=== PATIENT | female | born 1990 | race Caucasian/White ===

== ENCOUNTER 2016-08-23 04:06 | Emergency (ER) | payer OTHER ==
[~2016-08-23] VITALS: Ht 157.5 cm; Wt 80.0 kg
[2016-08-23 04:08] VITALS: Ht 157.5 cm; Wt 80.0 kg
--- NOTE | 2016-08-23 04:48 | ERD ---
ER Documentation Chief Complaint Date/Time DATE: 08/23/16 TIME: 04:46 Chief Complaint anxiety HPI 26-year-old female presents with a history of palpitations, chest pain, racing thoughts for the past 2 weeks, worsened tonight. She states that she went out with her boyfriend, and for no reason she felt worse tonight. She states that she has had this in the past however has not needed any medication. She denies any thoughts of hurting herself or hurting others. ROS All systems reviewed and are negative except as per history of present illness. Medications Home Meds Active Scripts Lorazepam* (Ativan*) 0.5 Mg Tablet, 0.5 MG PO Q8, #10 TAB Prov:JEANNIE TOWNSEND PA-C 08/23/16 Allergies Allergies: Coded Allergies: No Known Allergy (Unverified , 08/23/16) PMhx/Soc Medical and Surgical Hx: pt denies Medical Hx, pt denies Surgical Hx History of Surgery: No Anesthesia Reaction: No Hx Neurological Disorder: No Hx Respiratory Disorders: No Hx Cardiac Disorders: No Hx Psychiatric Problems: No Hx Miscellaneous Medical Probl: No (DENIES MED AND SURG HX.) Hx Alcohol Use: No Hx Substance Use: No Hx Tobacco Use: No Smoking Status: Never smoker Physical Exam Vitals Vital Signs Date Time Temp Pulse Resp B/P Pulse Ox O2 Delivery O2 Flow Rate FiO2 08/23/16 04:08 97.4 99 20 131/73 98 Physical Exam General: Patient appears to be moderately anxious. HEENT: Head is normocephalic, atraumatic. No scleral icterus. Neck: Supple. Nontender. Lungs: Clear to auscultation. Normal air movement. Heart: Tachycardic, normal rhythm Abdomen: Soft, nontender, nondistended. Bowel sounds are normoactive. Extremities: No clubbing or cyanosis. Normal pulses. Moving extremities x 4. No weakness. Neurologic: Alert and oriented 3. No focal deficits. Skin: Normal turgor. No rash or lesions. Results 24 hrs Laboratory Tests Test 08/23/16 04:44 Bedside Glucose 144mg/dL Current Medications Medications (Trade) Dose Ordered Sig/Daphney Route PRN Reason Start Time Stop Time Status Last Admin Dose Admin Lorazepam (Ativan) 0.5 mg ONCE ONCE PO 08/23/16 05:00 08/23/16 05:01 DC 08/23/16 04:39 Procedures/MDM 12-lead EKG(interpreted by supervising physician): Dr. Cruz Rate/Rhythm: Normal Sinus Rhythm, rate of 69 QRS, ST, T-waves: No changes consistent w/ acute ischemia, no intervals, no dysrhythmias, no ectopy Impression: No evidence of ischemia or arrhythmia Accu-Chek 144 MDM: 26-year-old female presents with acute anxiety symptoms. She does not appear to be in any danger to herself or others. She is acutely anxious appearing, EKG was obtained and was normal. She was given Ativan for symptoms. She is feeling better at this time and will be discharged. She was advised to follow-up with a primary care doctor, to get a referral to see a psychologist or psychiatrist. Departure Diagnosis: Primary Impression: Anxiety Condition: JEANNIE Wang PA-C Aug 23, 2016 04:48
[2016-08-23] MEDS ORDERED: LORA-441 PO (04:55)
[2016-08-23] MEDS ORDERED: LORAZEPAM 0.5 MG TAB PO ONE (05:00)
== END 2016-08-23 06:00 | disposition home or self-care (01) ==
LOC: FTE 04:06
DX: F41.9 Anxiety disorder, unspecified (principal); R07.9 Chest pain, unspecified
CPT/HCPCS: 82962; 93005; Z7502; Z7610